=== PATIENT | male | born 1995 | race Two or more races ===

== ENCOUNTER 2017-10-28 08:18 | Emergency (ER) | payer BC ==
[2017-10-28] MEDS ORDERED: Sodium Chloride 0.9% 1,000 ML IV ONE (08:48)
[2017-10-28] MEDS ORDERED: levETIRAcetam 500 MG in Sodium Chloride 0.9% 100 ML IV ONE ×2 (08:49→09:15)
--- NOTE | 2017-10-29 13:02 | ER ---
DATE SEEN: 10/28/2017 TIME SEEN: The patient was seen at 0845 hours. HISTORY OF PRESENT ILLNESS: This 22-year-old gentleman was working at [employer] and experienced a seizure. He was not doing anything unusual. The patient had a witnessed fall and was seen falling to the floor and struck the left side of his face. He had tonic upper extremity motion, but not lower extremity motion. He uses marijuana, but no other drugs. He has had a mild headache, 5/10 intensity. He has been ambulatory with a staff person who has come [facility]. The last time he had alcohol, it was binge drinking a month ago. He has mild left hip discomfort. Never seen a neurologist. No history of previous significant trauma. No motor vehicle accident. No seizure injuries history or encephalitis or childhood illnesses. He has mild discomfort, left lower lip. He has bitten his left lateral tongue and has mild left rib discomfort. He denies shortness of breath, back pain, neck pain, arm pain, abdominal pain, lower extremity pain. IMMUNIZATIONS: Up to date. MEDICATIONS: None. PAST MEDICAL HISTORY: Negative for history of injuries, motor vehicle accident, other serious illnesses, hospitalizations. His parents are in [place]. Mother and father are not able to be reached. REVIEW OF SYSTEMS: Negative otherwise except for noted above. PHYSICAL EXAMINATION: VITAL SIGNS: Blood pressure 130/50, heart rate 114 - this did come down to 103, respirations 18, oxygen saturation 97%, temperature is 36.7 degrees centigrade. CONSTITUTIONAL: Alert, well-muscled, tall, slender man. HEENT: PERRLA intact. Eyegrounds normal appearance. Pharynx without abnormality. Minimal discomfort left lower lip with mild swelling. No laceration noted. Lateral left anterior 1.5 cm tongue abrasion noted. No laceration noted. Teeth intact, no malocclusion. He has good dental hygiene. NECK: No bruits. No masses. No thyromegaly. No tenderness to cervical spine. No decreased range of motion. No evidence for ecchymosis, swelling on inspection and palpation of the scalp and the neck. LUNGS: Clear without rales, rhonchi, or wheezes. HEART: S1, S2. No murmur. Regular rate and rhythm. CHEST WALL: Left side, rib 8, between the anterior axillary line and the midclavicular line, mild discomfort with palpation. No crepitus. No step- off. No sternochondral discomfort. No rales noted. No abnormality in lung air exchange. ABDOMEN: Soft. No guarding. No masses. No megaly. No hepatosplenomegaly. No tenderness in the abdomen. MUSCULOSKELETAL: No tenderness to the cervical, thoracic, lumbar spine or paraspinal muscles or upper and lower extremities. NEURO: Deep tendon reflexes 1+ in the upper and lower extremities. Cranial nerves 2 through 12 intact. No past pointing. No dysmetria. No pronator drift. No weakness. Romberg is negative. Gait is normal. Mentation is appropriate. DERMIS: Negative. Mild acne. ASSESSMENT: 1. The patient did refuse to have a CAT scan of his head. (Rule out any potential toxocara cysts or abnormality as he comes from [place]. This gentleman could have toxoplasmosis. He denies having travelled to [place] or having eaten unusual foods that could have come from [place]. However, he probably still has been exposed to toxoplasmosis or cysticercosis.) 2. This is the first seizure etiology indeterminate. No history of antecedent events that could cause a seizure. He does use marijuana occasionally. 3. He has had one episode of binge drinking a month ago. 4. No TMJ discomfort on the left side with evaluation, but he has mild left lower lip discomfort without laceration. He has left lateral tongue abrasion without laceration secondary to seizure. 5. Smokes marijuana occasionally, but actually on a daily basis. PLAN: 1. The patient advised he needs to stay off work until he is cleared by his doctor. Follow up with doctor in 3 to 5 days. [address]. 3. He should have further specialty evaluation, EEG, and also CKs to make sure he does have a potential cysticercosis cyst in the brain that could be causing his isolated seizure. 4. Off work until he is cleared from this, he works at [employer]. /[id number] VALERIA/JM
== END 2017-10-28 10:57 | disposition home or self-care (01) ==
LOC: FB.ED 08:18
DX: R56.9 Unspecified convulsions (principal); S01.511A Laceration without foreign body of lip, initial encounter; S00.512A Abrasion of oral cavity, initial encounter; F12.10 Cannabis abuse, uncomplicated
CPT/HCPCS: 36415; 80053; 80305; 85025; 96361; 96365; 99285; J1953; J7030